=== PATIENT | male | born 1990 | race Caucasian/White ===

== ENCOUNTER 2019-08-21 02:01 | Emergency (ER) | payer OTHER, SELFPAY ==
[2019-08-21 02:06] VITALS: BP 119/69; PULSE 80; RESP 18; TEMP 36.6; O2SAT 100
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
[2019-08-21] MEDS: PENICILLIN V POTASSIUM 250 MG TABLET 500 MG PO (03:35)
[2019-08-21 03:36] VITALS: BP 131/74; PULSE 74; RESP 18; O2SAT 98
== END 2019-08-21 03:37 | disposition home or self-care (01) ==
PROVIDERS: Emergency Provider Emergency Medicine
DX: K04.7 Periapical abscess without sinus (principal)
CPT/HCPCS: 41800; 99283; A9270

== ENCOUNTER 2020-11-17 19:28 | Emergency (ER) | payer OTHER, SELFPAY ==
--- NOTE | ~2020-11-17 | XR_ITS ---
XR foot RT min 3V 11/17/2020 21:22 Indication: Right foot pain Procedure: 4 views right foot Comparison: No prior studies for comparison. Findings: There is mild hallux valgus. Mild degenerative change at the first MTP joint. No fracture o r traumatic malalignment. No focal soft tissue abnormality. Impression: 1: No acute fracture. Reviewed, dictated and finalized at location A. Impression: 1: No acute fracture.
--- NOTE | ~2020-11-17 | CT_ITS ---
EXAMINATION: CT ankle RT wo con EXAM DATE: 11/17/2020 22:21 INDICATION: Possible fracture . Abnormal x-ray. TECHNIQUE: Spiral CT ankle RT wo con was performed without contrast. Axial, coronal and sagittal im ages were reviewed. The dose-length product (DLP) for this examination was 240.16 mGy-cm. The expos ure was tailored according to patient size (auto mA exposure control), and iterative reconstruction ( ASIR) was used as additional dose reduction technique. Correlation is made to ankle x-ray 11/17/2020. FINDINGS: There is acute closed posttraumatic nondisplaced fracture through the tibial plafond and an terolaterally. Fibula and talus are intact. There is acute nondisplaced fracture through the medial inferior aspect of the navicular bone. There is soft tissue swelling. IMPRESSION: 1. Acute nondisplaced left tibial plafond fracture. 2. Acute nondisplaced navicular fracture. Reviewed, dictated and finalized at location A.
--- NOTE | ~2020-11-17 | XR_ITS ---
XR foot LT min 3V 11/17/2020 21:22 Indication: Left foot pain Procedure: 4 views left foot Comparison: No prior studies for comparison. Findings: Lisfranc joint intact. No acute fracture. There is an intramedullary marco antonio in the distal aspe ct of the tibia with 2 distal interlocking screws. No focal soft tissue abnormality. No foreign peyton s. Lisfranc joint intact. Impression: 1: No acute fracture. Reviewed, dictated and finalized at location A. Impression: 1: No acute fracture.
--- NOTE | ~2020-11-17 | XR_ITS ---
XR ankle RT min 3V 11/17/2020 21:21 Indication: Right ankle pain and swelling Procedure: 4 views right ankle Comparison: No prior studies for comparison. Findings: There is a possible nondisplaced distal tibial fracture. Consider correlation with CT. No s ignificant soft tissue abnormality. No foreign bodies. Impression: 1: Possible nondisplaced distal tibial fracture seen on the AP view only. Consider correlation with C T. Reviewed, dictated and finalized at location A. Impression: 1: Possible nondisplaced distal tibial fracture seen on the AP view only. Consi chacha correlation with CT.
[2020-11-17 19:32] VITALS: BP 119/61; PULSE 68; RESP 16; TEMP 36.4; O2SAT 100
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
[2020-11-17] MEDS: oxyCODONE/ACETAMINOPHEN (*CRX) 5-325 MG TABLET 1 TABLET PO (22:41)
[2020-11-17 23:52] VITALS: BP 126/78; PULSE 74; RESP 18; O2SAT 98
--- NOTE | 2021-01-02 10:59 | PC.NURSE ---
LATE ENTRY This note is being entered to document information to the patient's record. The following information was omitted on [11/17/2020], by [Shahla Fowler RN]. Short leg posterior splint applied to Right lower extremity.
== END 2020-11-18 00:06 | disposition home or self-care (01) ==
PROVIDERS: Emergency Provider Emergency Medicine
DX: S82.874A Nondisplaced pilon fracture of right tibia, initial encounter for closed fracture (principal); S92.254A Nondisplaced fracture of navicular [scaphoid] of right foot, initial encounter for closed fracture; V86.56XA Driver of dirt bike or motor/cross bike injured in nontraffic accident, initial encounter
CPT/HCPCS: 29515; 73610; 73630; 73700; 99284; A9270

== ENCOUNTER 2022-12-29 19:19 | Emergency (ER) | payer OTHER, SELFPAY ==
--- NOTE | ~2022-12-29 | CT_ITS ---
EXAMINATION: CT facial & cervical spine wo DATE: 12/29/2022 20:58 INDICATION: facial trauma TECHNIQUE: Computed tomography (CT) of the maxillofacial region and cervical spine was performed with out intravenous contrast. Automated exposure control and iterative reconstruction technique were empl oyed. The dose-length product was 581.34 mGy-cm. COMPARISON: None FINDINGS: CERVICAL: Vertebral Body Alignment: Intact. Craniocervical and atlantoaxial alignment: No significant degenerative change. Alignment intact. Osseous structures/fracture: No evidence of a lytic or blastic process in the visualized spine. No e vidence of acute fracture. Cervical soft tissues: The paraspinal soft tissues planes are maintained. Degenerative changes: No significant degenerative changes. FACE: Soft Tissues: No significant superficial soft tissue swelling. Facial bones: No acute fracture. No lytic or blastic process. Eyes: The globes are intact. The soft tissue planes of the orbits are maintained. Paranasal Sinuses: The visualized aerated spaces are clear. Foreign Bodies: No radiopaque foreign bodies. Other Findings: None. IMPRESSION: No acute fracture or traumatic malalignment in the cervical spine. No acute facial bone fracture. Reviewed, dictated and finalized at location K. IMPRESSION: No acute fracture or traumatic malalignment in the cervical spine. No acute fac ial bone fracture.
--- NOTE | ~2022-12-29 | CT_ITS ---
EXAMINATION: CT brain wo con DATE: 12/29/2022 20:57 INDICATION: pain status post trauma . TECHNIQUE: Computed tomography (CT) of the head was performed without intravenous contrast. The mA wa s adjusted according to patient size. Iterative reconstruction technique was employed. The dose-lengt h product was 605.33 mGy-cm. COMPARISON: 10/24/2017. FINDINGS: No acute intracranial hemorrhage or extra-axial fluid collection. No hydrocephalus, mass, or herniation. No acute ischemic infarct. Unremarkable dural venous sinus attenuation. No acute osseous abnormality. The aerated spaces are clear. IMPRESSION: No acute intracranial process. Reviewed, dictated and finalized at location K.
[2022-12-29 19:36] VITALS: BP 127/74; PULSE 81; RESP 16; TEMP 36.6; O2SAT 97
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
== END 2022-12-29 21:33 | disposition home or self-care (01) ==
PROVIDERS: Emergency Provider Emergency Medicine
DX: S00.33XA Contusion of nose, initial encounter (principal); W22.8XXA Striking against or struck by other objects, initial encounter
CPT/HCPCS: 70450; 70486; 72125; 99284

== ENCOUNTER 2024-12-21 16:03 | Emergency (ER) | payer OTHER, SELFPAY ==
[2024-12-21 16:08] VITALS: BP 145/74; PULSE 80; RESP 18; TEMP 36.8; O2SAT 100
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
--- OUTSIDE RECORDS SUMMARY | 2024-12-21 18:33 | XMS_ITS | Clinical Summary ---
Author Organization [facility] Address [address] [place] [address] Care Team Providers Care Reinforcing Bar Setter Name Role Phone Unavailable Primary Care Provider Unavailabl e Source Comments [facility],non-owned Affiliates and Associated Physician Practices is amultiple site organization consisting of ambulatory clinics and hospital sitesin [place], [place], [place] and [place]. This disclosure is being madepursuant to the Care Everywhere program and may not contain all information available regarding this patient. Last updated 17.[facility] [place] Allergies No known active allergies Medications * Be aware that medications may not be up to date on this document. Alwaysverify current medications with the patient. amoxicillin-clav ulanate (Augmentin) 875-125 MG tablet Take 1 (one) tablet by mouth 2 times daily 20 tablet 02/02/2024 Active HYDROcodone-acet aminophen ([place]) 5-325 MG tabletIndication s:Dental abscess Take 1 (one) tablet by mouth every 8 hours as needed for Pain 10 tablet 02/02/2024 Active Social History Tobacco Use Types Packs/Day Years Used Date Smoking Tobacco: Never Assessed Sex and Gender Information Value Date Recorded Sex Assigned at Not on file Legal Sex Male 11:25 AM ACCOUNTING POLICY CONSULTANT Gender Identity Not on file Sexual Orientation Not on file Last Filed Vital Signs Vital Sign Reading Time Taken Comments Blood Pressure 139/74 02/02/2024 1:53 PM ACCOUNTING POLICY CONSULTANT Pulse 60 02/02/2024 1:53 PM ACCOUNTING POLICY CONSULTANT Temperature 36.6 C (97.9 F) 02/02/2024 11:28 AM ACCOUNTING POLICY CONSULTANT Respiratory Rate 18 02/02/2024 1:53 PM ACCOUNTING POLICY CONSULTANT Oxygen Saturation 100% 02/02/2024 1:53 PM ACCOUNTING POLICY CONSULTANT Inhaled Oxygen Concentration - - Weight 70.3 kg (155 lb) 02/02/2024 11:28 AM ACCOUNTING POLICY CONSULTANT Height 167.6 cm (5' 6) 02/02/2024 11:28 AM ACCOUNTING POLICY CONSULTANT Body Mass Index 25.02 02/02/2024 11:28 AM ACCOUNTING POLICY CONSULTANT Plan of Treatment Health Maintenance Due Date Last Done Comments HIV SCREENING 08/19/2007 HEPATITIS C SCREENING 08/14/2010 DTAP/TDAP/TD VACCINES (1 - Tdap) 08/19/2011 HEPATITIS B VACCINE (1 of 3 - 19+ 3-dose series) 08/19/2011 HPV VACCINE (1 - 3-dose SCDM series) 08/19/2019 DEPRESSION SCREENING 03/09/2024 COVID-19 VACCINE (1 - 2023-2 5 season) 2024 INFLUENZA VACCINE (#1) 2024 ZOSTER VACCINE (1 of 2) 2042 HIB VACCINE Aged Out No longer eligi ble based on patient's age to complete this topic MENINGOCOCCAL (Group B) VACC INE SHARED DECISION-MAKING Aged Out No longer eligibl e based on patient's age to complete this topic MENINGOCOCCAL GROUPS A/C/Y/W VACCINE Aged Out No longer eligible b ased on patient's age to complete this topic PNEUMOCOCCAL VACCINE Aged Out No long er eligible based on patient's age to complete this topic Insurance
--- OUTSIDE RECORDS SUMMARY | 2024-12-21 18:33 | XMS_ITS | Clinical Summary ---
Author Organization [facility] Address [address] [place] [address] Care Team Providers Care Toaster Element Repairer Name Role Phone No, Physician Primary Care Provider [phone] Allergies No known active allergies Social History Tobacco Use Types Packs/Day Years Used Date Smoking Tobacco: Never Assessed Personal Safety Answer Date Recorded Getting School Help Needed Not on file 05/02 Sex and Gender Information Value Date Recorded Sex Assigned at Not on file Legal Sex Male 8:17 AM DESIGN DRAFTSMAN Gender Identity Not on file Sexual Orientation Not on file Last Filed Vital Signs Vital Sign Reading Time Taken Comments Blood Pressure 130/80 02/16/2022 12:19 AM DESIGN DRAFTSMAN Pulse 99 02/16/2022 12:19 AM DESIGN DRAFTSMAN Temperature 36.8 C (98.2 F) 02/16/2022 12:19 AM DESIGN DRAFTSMAN Respiratory Rate 17 02/16/2022 12:1 9 AM DESIGN DRAFTSMAN Oxygen Saturation 98% 02/16/2022 12: 19 AM DESIGN DRAFTSMAN Inhaled Oxygen Concentration - - Weight 67.1 kg (147 lb 14.9 oz) 022 12:19 AM DESIGN DRAFTSMAN Height 165.1 cm (5' 5) 02/16/2022 12:1 9 AM DESIGN DRAFTSMAN Body Mass Index 24.62 02/16/2022 12:19 AM DESIGN DRAFTSMAN Plan of Treatment Health Maintenance Due Date Last Done Comments Depression Screening 1992 Hepatitis C Screening 1992 DTaP/Tdap/Td Vaccine (1 - Tdap) 08/19/2003 Varicella Vaccines (1 of 2 - 13+ 2-dose series) 2005 Hepatitis B Screening 2010 Regular Well Visit/Exam 18-64 2010 HPV Vaccines (1 - 3-dose SCD M series) 08/19/2019 Influenza Vaccine (#1) 2024 Pneumococcal vaccine <65 Aged Out No longer eligible based on patient's age to complete this topic Insurance [place] [id number] [facility] Care Teams Toaster Element Repairer Relationship Specialty Start Date End Date No, Physician PCP - General 07/23/16
[2024-12-21 18:55] VITALS: BP 128/88; PULSE 87; RESP 18; TEMP 36.6; O2SAT 98
== END 2024-12-21 18:57 | disposition home or self-care (01) ==
LOC: ANHED 18:31
DX: S61.211A Laceration without foreign body of left index finger without damage to nail, initial encounter (principal); W26.0XXA Contact with knife, initial encounter
CPT/HCPCS: 12002; 99282